=== PATIENT | female | born 1955 | race African-American/Black ===

== ENCOUNTER 2017-10-12 08:57 | Day surgery (SDC) | payer OTHER ==
[2017-10-11 11:00] VITALS: BMI 33.6
--- NOTE | 2017-10-12 08:23 | HP ---
Satellite [facility] - Chief Complaint Chief Complaint: right shoulder pain History of Present Illness: right shoulder impingement, adhesive capsulitis History Source: Patient Limitations to Obtaining History: No Limitations - Past Medical History Allergies/Adverse Reactions: Allergies Allergy/AdvReac Type Severity Reaction Status Date / Time codeine Allergy Intermediate Verified 10/11/17 11:01 - Current Medications Current Medications: Home Medications Medication Instructions Recorded Hydrochlorothiazide [Hctz -] 12.5 mg PO DAILY 10/11/17 Losartan Potassium 12.5 mg PO DAILY 10/11/17 Metformin HCl [Glucophage] 500 mg PO BID 10/11/17 Satellite Physical Exam - Physical Examination General Appearance: Well Nourished ENT: Clear Lung: Clear to auscultation Heart: Regular rate & rhythm Breasts: Soft Abdomen: Soft Extremities: No edema Satellite Impression/Plan - Impression/Plan Impression: right shoulder impingement syndrome, adhesive capsulitis Operative Procedure: right shoulder arthroscopy, decompression, manipulation under anesthesia Date to be Performed: 10/12/17
[2017-10-12 09:21] LABS: URINE APPEARANCE CLEAR; URINE BILIRUBIN NEGATIVE (<2.0 mg/dL); URINE BLOOD NEGATIVE (NEGATIVE); URINE COLOR LTYELLOW; URINE GLUCOSE (UA) NEGATIVE (NEGATIVE); URINE KETONE NEGATIVE (NEGATIVE); URINE LEUK ESTERASE NEGATIVE (NEGATIVE); URINE NITRITE NEGATIVE (NEGATIVE); URINE PROTEIN NEGATIVE (NEGATIVE); URINE UROBILINOGEN NEGATIVE mg/dL (0.2-1.0)
[2017-10-12] MEDS ORDERED: PROPOFOL 20 ML ONE (10:14)
[2017-10-12] MEDS ORDERED: SUCCINYLCHOLINE CHLORIDE 200 MG/10 ML VIAL ONE (10:14)
[2017-10-12] MEDS ORDERED: DEXAMETHASONE SOD PHOSPHATE 4 MG/1 ML VIAL ONE (10:28)
[2017-10-12] MEDS ORDERED: ROPIVACAINE HCL 0.5% 30ML VIAL ONE (10:35)
[2017-10-12] MEDS ORDERED: DEXAMETHASONE SOD PHOSPHATE/PF 10 MG/ML SDV ONE (10:35)
[2017-10-12] MEDS ORDERED: MIDAZOLAM HCL 2 MG/2 ML SINGLE DOSE VIAL ONE ×3 (10:37→11:24)
[2017-10-12] MEDS ORDERED: DESFLURANE GAS 240 ML BOTTLE IH ONE (11:34)
[2017-10-12] MEDS ORDERED: ceFAZolin SODIUM 1 GM VIAL ONE (11:53)
[2017-10-12] MEDS ORDERED: ceFAZolin SODIUM 1 GM VIAL IVPB ONE (12:00)
[2017-10-12] MEDS ORDERED: oxyCODONE HCL 5 MG TABLET PO PRN ×2 (13:31)
[2017-10-12] MEDS ORDERED: ONDANSETRON 4 MG/2 ML VIAL IVPUSH PRN (13:31)
--- NOTE | 2017-10-12 13:37 | OP ---
Operative Note - Note: Operative Date: 10/12/17 ([facility]) Pre-Operative Diagnosis: right shoulder labral tear, rct Operation: right shoulder arthroscopy with RCR, labral repair,SAD,NATALIA Implants: 2 arthrex swivelocks Post-Operative Diagnosis: Same as Pre-op Surgeon: Peter Ogden Actuarial Technician: Ramone Forde Anesthesiologist/SCOURING PADS SUPERVISOR: Nico Marie Anesthesia: General, Local Specimens Removed: shavings Estimated Blood Loss (mls): 10 Operative Report Dictated: Yes
[2017-10-12] MEDS ORDERED: LACTATED RINGERS SOLUTION 1,000 ML IV SCH (13:45)
--- NOTE | 2017-10-12 15:10 | OP ---
DATE OF OPERATION: 10/12/2017 PREOPERATIVE DIAGNOSES: Right shoulder pain, subacromial impingement, and labral tear. POSTOPERATIVE DIAGNOSES: Right shoulder pain, subacromial impingement, labral tear, and rotator cuff tear. PROCEDURES: Right shoulder arthroscopy, subacromial decompression, distal clavicle excision, arthroscopic labral repair, arthroscopic rotator cuff repair, and manipulation under anesthesia. SURGEON: Glory Roberts MD SERVER DEVELOPER: BLANKA Sena ANESTHESIOLOGIST: Shona Conte MD; ANESTHESIA: Right interscalene block and LMA anesthesia. DRAINS: None. COMPLICATIONS: None. BLOOD LOSS: Minimal. BLOOD GIVEN: None. FLUID REPLACEMENT: 1200 mL. INDICATIONS: This patient is a 61-year-old female with a preoperative diagnosis of right shoulder impingement syndrome, labral tear, and a possible rotator cuff tear. After understanding the potential risks, complications, alternatives and benefits of surgery versus nonsurgical treatment, the patient elected to undergo this procedure. PROCEDURE: The patient was brought to the operating room, peripheral IV placed, IV sedation given, and 2 g of IV Ancef was given. A right interscalene block was performed. LMA anesthesia was induced. The right upper extremity was prepped and draped in a sterile fashion. She was placed into the beach-chair position with ample padding throughout. I did a manipulation under anesthesia, before we prepped and draped, and I was able to feel that it popped through several bands of scar tissue. Then, her right upper extremity was prepped and draped in the usual sterile fashion. The bony landmarks were marked out with a marking pen. A posterior portal was established in the standard fashion. A diagnostic glenohumeral arthroscopy was performed. The patient had glenohumeral synovitis. Therefore, an anterior portal was established. An ArthroCare wand was used to do a partial arthroscopic synovectomy. This revealed the patient had a very frayed anterior labrum. The probe was introduced. The labrum was probed and it was seen to be clearly torn from the 1 o'clock to the 5 o'clock position. I used a combination of the val and the rasp and then the shaver to decorticate the base of the labrum. What was left of the labrum was of good quality, and in the standard fashion, using the lasso and the FiberStick, I put in three FiberWire Arthrex PushLock bone anchors to repair the labrum. After it was done, the area was probed. The labrum seemed to be quite stable. Next, I looked at the undersurface of the rotator cuff and there was clearly a significant partial-thickness tear. Attention turned to the subacromial space. There was a tremendous amount of subacromial bursitis. A lateral portal was established using a spinal needle. A No. 15-scalpel blade and a Green cannula were introduced into the subacromial space. Next, I did a soft tissue bursectomy with the ArthroCare wand. This revealed a very large subacromial spur and a distal clavicular spur. I did a bony decompression using the 5.5-mm oval charlotte of these two spurs of the distal clavicle and the acromion. After the bony aspect of the decompression, after extensive soft tissue debridement, I was able to appreciate the top surface of the rotator cuff where there was a clear, quarter-sized, crescent-shaped rotator cuff at the insertion of the midaspect of the supraspinatus. I then freshened this area up. I decorticated the bed on the humeral head where there was a large bone spur. Lenard were introduced to remove all debris, and then using the standard arthroscopic technique, I put in five FiberWires and put these through two Arthrex SwiveLock anchors. I put six tails through an anterior anchor and four tails through a posterior anchor. Came down quite well. Moved as a unit with the head. Overall, it was much improved. The area was copiously irrigated and washed out. All instrumentation removed. Excess saline removed. The arthroscopy portals were closed with 3-0 nylon suture. The area was then washed, dried, and covered with Aquacel. A shoulder immobilizer was applied. Total operative time was about one hour. There were no complications during the case. The patient tolerated the procedure quite well and was brought to the ambulatory recovery room in stable condition. GLORY ROBERTS M.D. [id number]
[2017-10-12 16:17] VITALS: BP 130/70; PULSE 94; TEMP 98.3
--- NOTE | 2017-10-14 11:37 | PATH ---
Surgical Pathology Report Patient Name: JILL QUIJANO [facility]. Rec. #: [id number] /Age/Gender: 1955 (Age: 61) / F Account: [id number] Location: [facility] SURGICAL Taken: 10/12/2017 Received: 10/13/2017 Reported: 10/14/2017 Physicians: Peter Ogden M.D. Specimen(s) Received RIGHT SHOULDER SHAVINGS Clinical History Tear right shoulder Final Diagnosis RIGHT SHOULDER, ARTHROSCOPIC SHAVING: PORTIONS OF SYNOVIUM, CARTILAGE, SKELETAL MUSCLE AND BONE CONSISTENT WITH ARTHROSCOPIC SHAVINGS. Electronically Signed Jung Davila M.D. Gross Description Received in formalin, labeled "right shoulder shavings," is a 4 x 3 x 0.5 cm. aggregate of rueda-yellow soft tissue fragments. A outside sales account representative portion is submitted in one cassette. [facility]/10/13/2017 [facility]/10/13/2017
== END 2017-10-12 16:05 | disposition home or self-care (01) ==
LOC: JASU-SURG 08:57
PROVIDERS: ATTEND Orthopaedic Surgery
PROC: 0PB94ZZ Excision of Right Clavicle, Percutaneous Endoscopic Approach (ICD-10-PCS; 2017-10-12)
PROC: 0RQJ4ZZ Repair Right Shoulder Joint, Percutaneous Endoscopic Approach (ICD-10-PCS; 2017-10-12)
PROC: 0RNJ4ZZ Release Right Shoulder Joint, Percutaneous Endoscopic Approach (ICD-10-PCS; principal; 2017-10-12 11:00)
PROC: 0LQ14ZZ Repair Right Shoulder Tendon, Percutaneous Endoscopic Approach (ICD-10-PCS; 2017-10-12 11:00)
DX: M75.41 Impingement syndrome of right shoulder (principal); M75.101 Unspecified rotator cuff tear or rupture of right shoulder, not specified as traumatic; S43.491A Other sprain of right shoulder joint, initial encounter; X58.XXXA Exposure to other specified factors, initial encounter; Y93.9 Activity, unspecified; Y92.9 Unspecified place or not applicable; Y99.9 Unspecified external cause status; I10 Essential (primary) hypertension; E66.01 Morbid (severe) obesity due to excess calories; J44.9 Chronic obstructive pulmonary disease, unspecified; E11.9 Type 2 diabetes mellitus without complications; Z79.84 Long term (current) use of oral hypoglycemic drugs
CPT/HCPCS: 81003; 82962; 88304-TC; 94760

== ENCOUNTER 2024-02-24 08:43 | Emergency (ER) | payer BC ==
[2024-02-24 09:09] VITALS: BP 162/107; PULSE 96; RESP 16; TEMP 98.6; BMI 32.7
== END 2024-02-24 11:15 | disposition left against medical advice (07) ==
LOC: JER 08:43
DX: S02.2XXD Fracture of nasal bones, subsequent encounter for fracture with routine healing (principal); R42 Dizziness and giddiness; R55 Syncope and collapse; W01.198D Fall on same level from slipping, tripping and stumbling with subsequent striking against other object, subsequent encounter
CPT/HCPCS: 93005; 93010; 99283-25